=== PATIENT | male | born 1965 | race Caucasian/White ===

== ENCOUNTER 2022-08-26 14:40 | Inpatient (IN) | payer OTHER ==
[~2022-08-26] VITALS: Ht 177.8 cm; Wt 113.4 kg
[~2022-08-26 14:40] MED LIST: PHENYLEPHRINE HCL 1% 10 MG/ML VIAL ONE
[2022-08-26] MEDS ORDERED: ONDANSETRON HCL INJ 2MG/ML 2ML 2 MG/ML VIAL IV STA (14:48)
[2022-08-26] MEDS ORDERED: SODIUM CHLORIDE 0.9% 1000ML 1,000 ML IV ONE ×2 (15:00→16:45)
[2022-08-26] MEDS ORDERED: Morphine 4mg INJECTION 4 MG/ML INJ IV ONE (15:00)
[2022-08-26 15:09] LABS: BASOPHILS % 0.3 % (0.0-1.0); EOSINOPHILS # (AUTO) 0.1 (0.0-0.4); EOSINOPHILS % 0.4 % (0.0-6.0); HEMATOCRIT 50.4 % (38.2-49.6); HEMOGLOBIN 16.6 g/dL (14.0-18.0); LYMPHOCYTES # (AUTO) 1.5 (1.0-3.2); MEAN CORPUSCULAR HEMOGLOBIN 30.2 pg (28-32); MEAN CORPUSCULAR HGB CONC 32.9 g/dL (31-35); MEAN CORPUSCULAR VOLUME 91.6 fL (81-99); MONOCYTES # (AUTO) 1.3 (0.2-0.8); MONOCYTES % 9.3 % (4.4-11.3); NEUTROPHILS # (AUTO) 10.5 (2.1-6.9); NEUTROPHILS % 78.7 % (38.7-80.0); PLATELET COUNT 212 x10e3/uL (140-360); RED CELL DISTRIBUTION WIDTH 11.8 % (11.7-14.4)
[2022-08-26 15:39] LABS: ALBUMIN 3.4 g/dL (3.5-5.0); ALBUMIN/GLOBULIN RATIO 0.7 (0.8-2.0); ANION GAP 17.9 mmol/L (8-16); CALCIUM 9.4 mg/dL (8.4-10.2); CREATININE, SERUM 0.83 mg/dL (0.72-1.25); POTASSIUM 3.9 mmol/L (3.5-5.1)
[2022-08-26] MEDS ORDERED: Vancomycin IV 1 GM in SODIUM CHLORIDE 0.9% 250ML 250 ML IV STA (16:02)
[2022-08-26] MEDS ORDERED: MAGNESIUM SULFATE 2GM/50ML 50 ML IV ONE (16:15)
[2022-08-26] MEDS ORDERED: ONDANSETRON HCL INJ 2MG/ML 2ML 2 MG/ML VIAL IV PRN (16:30)
[2022-08-26] MEDS ORDERED: ASPIRIN 81 MG CHEW TAB PO ONE (16:30)
[2022-08-26] MEDS ORDERED: SODIUM CHLORIDE 0.9% 1000ML 3,400 ML IV SCH (16:45)
[2022-08-26] MEDS: SODIUM CHLORIDE 0.9% 1000ML 1,000 ML IV SCH (16:57)
[2022-08-26] MEDS ORDERED: ACETAMINOPHEN 325 MG TAB PO PRN (17:30)
[2022-08-26] MEDS ORDERED: HYDRALAZINE HCL 20 MG/ML VIAL IV PRN (17:30)
[2022-08-26] MEDS ORDERED: DEXTROSE 50% SYRINGE 50 ML IV PRN (17:30)
[2022-08-26] MEDS ORDERED: METOPROLOL TARTRATE INJ 1 MG/ML VIAL IV PRN (17:45)
[2022-08-26] MEDS ORDERED: Vancomycin IV 1 GM in SODIUM CHLORIDE 0.9% 250ML 250 ML IV ONE (18:00)
[2022-08-26 19:06] LABS: CLARITY,URINE CLEAR (CLEAR); COLOR,URINE YELLOW (YELLOW); KETONES,URINE 2+ (NEGATIVE); LEUKOCYTE ESTERASE ,URINE NEGATIVE (NEGATIVE); NITRITE,URINE NEGATIVE (NEGATIVE); PROTEIN,URINE DIPSTICK NEGATIVE (NEGATIVE); URINE UROBILINOGEN 0.2 mg/dL (0.2 - 1)
[2022-08-26 19:10] LABS: EPITHELIAL CELLS,URINE FEW /LPF; RBC,URINE 0-5 /HPF (0-5); WBC,URINE (MAN) 0-5 /HPF (0-5)
[2022-08-26] MEDS: Morphine 4mg INJECTION 4 MG/ML INJ IV PRN (20:07)
[2022-08-26 20:22] VITALS: BP 113/65
[2022-08-26 21:00] VITALS: BP 113/65
[2022-08-26] MEDS: INSULIN REGULAR, HUMAN 100 UNIT/1 ML SQ SCH (22:57)
[2022-08-27] VITALS (10 sets, daily range): BP systolic 99–135; BP diastolic 56–93
[2022-08-27] MEDS: SODIUM CHLORIDE 0.9% 1000ML 1,000 ML IV SCH ×3 (00:47→16:41)
[2022-08-27] MEDS: Morphine 4mg INJECTION 4 MG/ML INJ IV PRN ×4 (00:48→19:08)
[2022-08-27 04:58] LABS: BASOPHILS # (AUTO) 0.1 (0.0-0.1); BASOPHILS % 0.8 % (0.0-1.0); EOSINOPHILS # (AUTO) 0.1 (0.0-0.4); EOSINOPHILS % 1.5 % (0.0-6.0); HEMATOCRIT 47.5 % (38.2-49.6); HEMOGLOBIN 15.4 g/dL (14.0-18.0); LYMPHOCYTES # (AUTO) 1.4 (1.0-3.2); LYMPHOCYTES % 14.8 % (18.0-39.1); MEAN CORPUSCULAR HEMOGLOBIN 30.3 pg (28-32); MEAN CORPUSCULAR HGB CONC 32.4 g/dL (31-35); MEAN CORPUSCULAR VOLUME 93.3 fL (81-99); MONOCYTES # (AUTO) 0.9 (0.2-0.8); MONOCYTES % 9.8 % (4.4-11.3); NEUTROPHILS # (AUTO) 6.8 (2.1-6.9); NEUTROPHILS % 72.8 % (38.7-80.0); PLATELET COUNT 132 x10e3/uL (140-360); RED BLOOD COUNT 5.09 x10e6/uL (4.3-5.7)
[2022-08-27 05:11] LABS: INR 1.03; PROTHROMBIN TIME 14.4 seconds (11.9-14.5)
[2022-08-27 05:12] LABS: PARTIAL THROMBOPLASTIN TIME 30.7 seconds (23.8-35.5)
[2022-08-27 05:20] LABS: ANION GAP 16.7 mmol/L (8-16); CALCIUM 8.4 mg/dL (8.4-10.2); CREATININE, SERUM 0.61 mg/dL (0.72-1.25); MAGNESIUM 1.8 MG/DL (1.3-2.1); POTASSIUM 3.7 mmol/L (3.5-5.1)
[2022-08-27] MEDS ORDERED: SODIUM CHLORIDE 0.9% 250ML 250 ML ONE (06:23)
[2022-08-27] MEDS: Vancomycin IV 1 GM in SODIUM CHLORIDE 0.9% 250ML 250 ML IV SCH ×2 (06:46→16:41)
[2022-08-27] MEDS: INSULIN REGULAR, HUMAN 100 UNIT/1 ML SQ SCH ×4 (07:30→22:08)
[2022-08-27] MEDS: ASPIRIN 81 MG ENTERIC COATED PO SCH (09:00)
[2022-08-27] MEDS ORDERED: BUPIVACAINE 0.5%/EPI 30 ML SDV INJ ONE (14:48)
[2022-08-27] MEDS: ACETAMINOPHEN/CODEINE 300MG - 30MG TAB PO PRN (22:04)
[2022-08-28] VITALS (8 sets, daily range): BP systolic 99–135; BP diastolic 54–93
[2022-08-28] MEDS: Morphine 4mg INJECTION 4 MG/ML INJ IV PRN ×4 (00:28→21:26)
[2022-08-28] MEDS: SODIUM CHLORIDE 0.9% 1000ML 1,000 ML IV SCH ×3 (00:33→16:30)
[2022-08-28 04:53] LABS: BASOPHILS % 0.6 % (0.0-1.0); EOSINOPHILS # (AUTO) 0.1 (0.0-0.4); EOSINOPHILS % 2.2 % (0.0-6.0); HEMATOCRIT 42.2 % (38.2-49.6); HEMOGLOBIN 14.2 g/dL (14.0-18.0); LYMPHOCYTES # (AUTO) 1.8 (1.0-3.2); LYMPHOCYTES % 27.8 % (18.0-39.1); MEAN CORPUSCULAR HEMOGLOBIN 29.9 pg (28-32); MEAN CORPUSCULAR HGB CONC 33.6 g/dL (31-35); MEAN CORPUSCULAR VOLUME 88.8 fL (81-99); MONOCYTES # (AUTO) 0.7 (0.2-0.8); MONOCYTES % 10.9 % (4.4-11.3); NEUTROPHILS # (AUTO) 3.7 (2.1-6.9); NEUTROPHILS % 58.2 % (38.7-80.0); PLATELET COUNT 159 x10e3/uL (140-360); RED BLOOD COUNT 4.75 x10e6/uL (4.3-5.7); RED CELL DISTRIBUTION WIDTH 11.9 % (11.7-14.4)
[2022-08-28] MEDS: Vancomycin IV 1 GM in SODIUM CHLORIDE 0.9% 250ML 250 ML IV SCH ×2 (04:53→18:04)
[2022-08-28 05:15] LABS: ANION GAP 15.6 mmol/L (8-16); CALCIUM 8.3 mg/dL (8.4-10.2); CREATININE, SERUM 0.68 mg/dL (0.72-1.25); POTASSIUM 3.6 mmol/L (3.5-5.1)
[2022-08-28] MEDS: INSULIN REGULAR, HUMAN 100 UNIT/1 ML SQ SCH ×5 (07:30→22:25)
[2022-08-28] MEDS: ASPIRIN 81 MG ENTERIC COATED PO SCH (08:34)
[2022-08-28 10:16] LABS: EOSINOPHILS % (MANUAL) 1 % (0-7); LYMPHOCYTES % (MANUAL) 27 % (19-48); MONOCYTES % (MANUAL) 11 % (3.4-9.0); NEUTROPHILS % (MANUAL) 61 % (40-74); PLATELET ESTIMATE ADEQUATE; PLATELET MORPHOLOGY COMMENT NORMAL; RBC MORPHOLOGY COMMENT NORMAL
[2022-08-28] MEDS: GLIPIZIDE 5 MG TAB PO SCH ×2 (10:30→16:30)
[2022-08-28] MEDS: NICOTINE 21 MG/EA PATCH TOP PRN (14:19)
[2022-08-28] MEDS: INSULIN GLARGINE 100 UNITS/ML VIAL SQ SCH ×2 (21:00→22:25)
[2022-08-28] MEDS: ACETAMINOPHEN/CODEINE 300MG - 30MG TAB PO PRN (23:45)
[2022-08-29] VITALS: BP 103/80
[2022-08-29 04:00] VITALS: BP 113/84
[2022-08-29] MEDS: Vancomycin IV 1 GM in SODIUM CHLORIDE 0.9% 250ML 250 ML IV SCH (05:34)
[2022-08-29 07:49] VITALS: BP 114/79
[2022-08-29 08:00] VITALS: BP 114/79
[2022-08-29] MEDS: INSULIN REGULAR, HUMAN 100 UNIT/1 ML SQ SCH ×2 (08:00→12:00)
[2022-08-29] MEDS: Morphine 4mg INJECTION 4 MG/ML INJ IV PRN ×2 (09:41→13:23)
[2022-08-29] MEDS: ASPIRIN 81 MG ENTERIC COATED PO SCH (09:43)
[2022-08-29] MEDS: GLIPIZIDE 5 MG TAB PO SCH (09:44)
[2022-08-29] MEDS: NICOTINE 21 MG/EA PATCH TOP PRN (09:49)
[2022-08-29] MEDS ORDERED: BACTRIM DS TAB1 EACH PO (10:52)
[2022-08-29] MEDS ORDERED: GLIPIZIDE5 MG PO (10:52)
[2022-08-29] MEDS ORDERED: METFORMIN HCL500 MG PO (10:58)
[2022-08-29 11:40] VITALS: BP 125/70
[2022-08-29] MEDS ORDERED: LIDOCAINE HCL 2% LOCAL INJ 5 ML SDV VIAL INJ ONE (16:00)
[2022-08-29] MEDS ORDERED: GLYCOPYRROLATE INJ 0.2 MG/ML VIAL IV ONE (16:00)
[2022-08-29] MEDS ORDERED: ROCURONIUM BROMIDE 10 MG/ML 5ML VIAL IV ONE (16:00)
[2022-08-29] MEDS ORDERED: SEVOFLURANE INHAL SOLN 250 ML PEN BTL INH ONE (16:00)
[2022-08-29] MEDS ORDERED: POVIDONE IODINE 0.05% 0.05 % ML PO ONE (16:00)
[2022-08-29] MEDS ORDERED: PROPOFOL IV EMULSION 10 MG/ML 20 ML VIAL IV ONE (16:00)
[2022-08-29] MEDS ORDERED: METOCLOPRAMIDE HCL 10 MG/2ML VIAL IV ONE (16:00)
[2022-08-29] MEDS ORDERED: ONDANSETRON HCL INJ 2MG/ML 2ML 2 MG/ML VIAL IV ONE (16:00)
[2022-08-29] MEDS ORDERED: NEOSTIGMINE 1 MG/ML 10ML VIAL IV ONE (16:00)
== END 2022-08-29 16:01 | disposition home health service (06) | DRG 854 ==
LOC: ER 14:43 → ERHOLD 16:29 → MED/SURG2 20:24
PROVIDERS: ADMIT Internal Medicine; ATTEND Internal Medicine
PROC: 3E03329 Introduction of Other Anti-infective into Peripheral Vein, Percutaneous Approach (ICD-10-PCS; 2022-08-26)
PROC: 0VB50ZZ Excision of Scrotum, Open Approach (ICD-10-PCS; principal; 2022-08-27 14:38)
DX: A41.9 Sepsis, unspecified organism (principal); E11.52 Type 2 diabetes mellitus with diabetic peripheral angiopathy with gangrene; E87.1 Hypo-osmolality and hyponatremia; I96 Gangrene, not elsewhere classified; N49.2 Inflammatory disorders of scrotum; R07.89 Other chest pain; I10 Essential (primary) hypertension; F17.200 Nicotine dependence, unspecified, uncomplicated; Z20.822 Contact with and (suspected) exposure to COVID-19; D69.6 Thrombocytopenia, unspecified; I49.9 Cardiac arrhythmia, unspecified; N43.3 Hydrocele, unspecified; I86.1 Scrotal varices; E66.9 Obesity, unspecified; Z68.35 Body mass index [BMI] 35.0-35.9, adult
CPT/HCPCS: 0223U; 36415; 71045; 76870; 80048; 80053; 80202; 81001; 82948; 83036; 83605; 83735; 84443; 84484; 85025; 85610; 85730; 87040; 87071; 87075; 87086; 87205; 88304; 93005; 93306; 93976; 99285; J1815; J1817; J2001; J2270; J2370; J2405; J2543; J2710; J2765; J3370; J3475; J7030; J7050

== ENCOUNTER 2024-03-31 18:30 | Inpatient (IN) | payer OTHER ==
[~2024-03-31] VITALS: Ht 177.8 cm; Wt 106.6 kg
[~2024-03-31 18:30] MED LIST changes: +ASPIRIN81 MG PO; +BACTRIM DS TAB1 EACH PO; +DOXYCYCLINE MO100 M1 PO; +GLIPIZIDE5 MG PO; +LANTUS 3ML100 UNITS/ SQ; +METFORMIN HCL500 MG PO; +NEURONTIN300 MG PO; +ONE DAILY COMP1 EACH; -PHENYLEPHRINE HCL 1% 10 MG/ML VIAL ONE; +TYLENOL 3 PO
[2024-03-31 19:31] LABS: BASOPHILS # (AUTO) 0.1 (0.0-0.1); BASOPHILS % 0.4 % (0.0-1.0); EOSINOPHILS # (AUTO) 0.1 (0.0-0.4); EOSINOPHILS % 0.6 % (0.0-6.0); HEMATOCRIT 50.1 % (38.2-49.6); HEMOGLOBIN 16.8 g/dL (14.0-18.0); LYMPHOCYTES # (AUTO) 1.2 (1.0-3.2); LYMPHOCYTES % 8.7 % (18.0-39.1); MEAN CORPUSCULAR HEMOGLOBIN 29.8 pg (28-32); MEAN CORPUSCULAR HGB CONC 33.5 g/dL (31-35); MONOCYTES # (AUTO) 1.2 (0.2-0.8); MONOCYTES % 8.1 % (4.4-11.3); NEUTROPHILS # (AUTO) 11.7 (2.1-6.9); NEUTROPHILS % 81.8 % (38.7-80.0); PLATELET COUNT 165 x10e3/uL (140-360); RED BLOOD COUNT 5.63 x10e6/uL (4.3-5.7); RED CELL DISTRIBUTION WIDTH 12.3 % (11.7-14.4); WHITE BLOOD COUNT 14.24 x10e3/uL (4.8-10.8)
[2024-03-31] MEDS: SODIUM CHLORIDE 0.9% 1000ML 1,000 ML IV ONE ×2 (19:31→22:13)
[2024-03-31] MEDS: ACETAMINOPHEN 325 MG TAB PO ONE (19:32)
[2024-03-31 19:51] LABS: ALBUMIN 3.2 g/dL (3.5-5.0); ALBUMIN/GLOBULIN RATIO 0.8 (0.8-2.0); ANION GAP 18.4 mmol/L (8-16); BILIRUBIN,TOTAL 1.5 mg/dL (0.2-1.2); CALCIUM 9.1 mg/dL (8.4-10.2); CREATININE, SERUM 0.9 mg/dL (0.72-1.25); TOTAL PROTEIN 7.3 g/dL (6.5-8.1)
[2024-03-31 19:55] LABS: POTASSIUM 3.4 mmol/L (3.5-5.1)
[2024-03-31 19:57] LABS: AMPHETAMINES SCREEN,URINE NEGATIVE (NEGATIVE); BENZODIAZEPINES SCREEN,URINE NEGATIVE (NEGATIVE); CANNABINOIDS SCREEN,URINE POSITIVE (NEGATIVE); METHADONE SCREEN, URINE NEGATIVE (NEGATIVE); OPIATES SCREEN,URINE NEGATIVE (NEGATIVE); PHENCYCLIDINE SCREEN,URINE NEGATIVE (NEGATIVE)
[2024-03-31] MEDS ORDERED: IOPAMIDOL 370 MG/ML 100 ML INFUS..BTL INJ ONE (20:07)
[2024-03-31 20:32] LABS: BILIRUBIN,URINE MODERATE (NEGATIVE); CLARITY,URINE SL CLOUDY (CLEAR); COLOR,URINE YELLOW (YELLOW); GLUCOSE, URINE 500 (NEGATIVE); KETONES,URINE 2+ (NEGATIVE); LEUKOCYTE ESTERASE ,URINE NEGATIVE (NEGATIVE); NITRITE,URINE NEGATIVE (NEGATIVE); PH,URINE 6 (5 - 7); PROTEIN,URINE DIPSTICK 2+ (NEGATIVE); URINE UROBILINOGEN 1 mg/dL (0.2 - 1)
[2024-03-31 20:50] LABS: BACTERIA,URINE FEW /HPF; EPITHELIAL CELLS,URINE FEW /LPF; MUCUS,URINE FEW (RARE); WBC,URINE (MAN) 0-5 /HPF (0-5)
[2024-03-31] MEDS: Vancomycin IV 1 GM in SODIUM CHLORIDE 0.9% 250ML 250 ML IV ONE (21:34)
[2024-03-31] MEDS ORDERED: Vancomycin IV 1 GM in SODIUM CHLORIDE 0.9% 250ML 250 ML IV SCH (22:00)
[2024-03-31] MEDS ORDERED: DEXTROSE 50% SYRINGE 50 ML IV PRN (22:00)
[2024-03-31] MEDS ORDERED: SODIUM CHLORIDE 0.9% 1000ML 2,000 ML ONE (22:13)
[2024-03-31 22:32] VITALS: PULSE 97; RESP 18; TEMP 99
[2024-03-31 22:35] VITALS: BP 106/73; PULSE 102; RESP 16; TEMP 98.8; O2SAT 99
[2024-03-31 22:47] VITALS: BP 101/64; PULSE 103; RESP 22; TEMP 98.8; O2SAT 100
[2024-03-31 23:00] VITALS: BP 104/67; PULSE 102; RESP 24; TEMP 98.8; O2SAT 96
[2024-03-31] MEDS: ACETAMINOPHEN 325 MG TAB PO PRN (23:50)
[2024-03-31] MEDS: SODIUM CHLORIDE 0.9% 1000ML 1,000 ML IV SCH (23:51)
[2024-04-01] VITALS (24 sets, daily range): BP systolic 86–131; BP diastolic 63–88; PULSE 94–108; RESP 18–35; TEMP 97.7–101.9; O2SAT 83–100
[2024-04-01 05:01] LABS: BASOPHILS % 0.2 % (0.0-1.0); EOSINOPHILS # (AUTO) 0.2 (0.0-0.4); EOSINOPHILS % 1.3 % (0.0-6.0); HEMATOCRIT 40.8 % (38.2-49.6); HEMOGLOBIN 14.2 g/dL (14.0-18.0); LYMPHOCYTES % 7.3 % (18.0-39.1); MEAN CORPUSCULAR HEMOGLOBIN 30.1 pg (28-32); MEAN CORPUSCULAR HGB CONC 34.8 g/dL (31-35); MEAN CORPUSCULAR VOLUME 86.6 fL (81-99); MONOCYTES # (AUTO) 1.3 (0.2-0.8); MONOCYTES % 9.8 % (4.4-11.3); NEUTROPHILS # (AUTO) 10.9 (2.1-6.9); NEUTROPHILS % 81.1 % (38.7-80.0); PLATELET COUNT 131 x10e3/uL (140-360); RED BLOOD COUNT 4.71 x10e6/uL (4.3-5.7); RED CELL DISTRIBUTION WIDTH 12.3 % (11.7-14.4); WHITE BLOOD COUNT 13.51 x10e3/uL (4.8-10.8)
[2024-04-01 06:01] LABS: ALBUMIN 2.5 g/dL (3.5-5.0); ALBUMIN/GLOBULIN RATIO 0.7 (0.8-2.0); BILIRUBIN,TOTAL 1.4 mg/dL (0.2-1.2); CALCIUM 8.4 mg/dL (8.4-10.2); CREATININE, SERUM 0.63 mg/dL (0.72-1.25); TOTAL PROTEIN 6.1 g/dL (6.5-8.1)
[2024-04-01] MEDS ORDERED: INSULIN REGULAR, HUMAN 100 UNIT/1 ML SQ SCH (07:30)
[2024-04-01] MEDS ORDERED: DEXTROSE 50% SYRINGE 50 ML IV PRN (09:30)
[2024-04-01] MEDS: INSULIN LISPRO 100 UNIT/1 ML 3ML VIAL SQ SCH ×2 (09:30→17:31)
[2024-04-01] MEDS: Vancomycin IV 1 GM in SODIUM CHLORIDE 0.9% 250ML 250 ML IV SCH (09:39)
[2024-04-01] MEDS: HYDROCODONE/APAP 10MG-325MG TAB PO PRN (09:40)
[2024-04-01] MEDS: INSULIN GLARGINE 100 UNITS/ML VIAL SQ ONE (10:45)
[2024-04-01] MEDS ORDERED: INSULIN GLARGINE 100 UNITS/ML VIAL SQ SCH (21:00)
[2024-04-01] MEDS: INSULIN GLARGINE 100 UNITS/ML VIAL SQ SCH (21:09)
[2024-04-02] VITALS (8 sets, daily range): BP systolic 99–112; BP diastolic 65–79; PULSE 84–100; RESP 16–20; TEMP 97.5–100; O2SAT 93–99
[2024-04-02 05:03] LABS: BASOPHILS % 0.3 % (0.0-1.0); EOSINOPHILS # (AUTO) 0.2 (0.0-0.4); EOSINOPHILS % 1.5 % (0.0-6.0); HEMOGLOBIN 14.2 g/dL (14.0-18.0); LYMPHOCYTES # (AUTO) 1.3 (1.0-3.2); LYMPHOCYTES % 10.5 % (18.0-39.1); MEAN CORPUSCULAR HEMOGLOBIN 29.8 pg (28-32); MEAN CORPUSCULAR HGB CONC 33.8 g/dL (31-35); MEAN CORPUSCULAR VOLUME 88.1 fL (81-99); MONOCYTES % 8.3 % (4.4-11.3); NEUTROPHILS # (AUTO) 9.4 (2.1-6.9); NEUTROPHILS % 78.9 % (38.7-80.0); PLATELET COUNT 146 x10e3/uL (140-360); RED BLOOD COUNT 4.77 x10e6/uL (4.3-5.7); RED CELL DISTRIBUTION WIDTH 12.3 % (11.7-14.4); WHITE BLOOD COUNT 11.93 x10e3/uL (4.8-10.8)
[2024-04-02 05:19] LABS: ALBUMIN 2.4 g/dL (3.5-5.0); ALBUMIN/GLOBULIN RATIO 0.7 (0.8-2.0); ANION GAP 11.9 mmol/L (8-16); BILIRUBIN,TOTAL 0.6 mg/dL (0.2-1.2); CALCIUM 8.5 mg/dL (8.4-10.2); CREATININE, SERUM 0.59 mg/dL (0.72-1.25); MAGNESIUM 1.5 MG/DL (1.3-2.1); TOTAL PROTEIN 5.9 g/dL (6.5-8.1)
[2024-04-02 05:27] LABS: POTASSIUM 2.9 mmol/L (3.5-5.1)
[2024-04-02 05:40] LABS: PHOSPHORUS 2.8 MG/DL (2.3-4.7)
[2024-04-02] MEDS ORDERED: SOD CHL 0.45%/POT CHL 20MEQ 1,000 ML IV SCH ×2 (05:45→07:30)
[2024-04-02] MEDS ORDERED: POTASSIUM CHLORIDE 20MEQ/100ML 100 ML IV ONE (06:15)
[2024-04-02] MEDS: POTASSIUM CHLORIDE 20 MEQ TAB CR PO STA (06:50)
[2024-04-02] MEDS: KCL 20MEQ/.9 SOD CHL 1,000 ML IV STA (08:49)
[2024-04-02] MEDS ORDERED: MAGNESIUM SULFATE 2GM/50ML IV ONE (10:00)
[2024-04-02] MEDS ORDERED: ALBUTEROL/IPRATROPIUM 3 ML NEB NEB PRN (10:15)
[2024-04-02] MEDS ORDERED: KCL 40MEQ/0.9% SOD CHL 1,000 ML IV SCH (10:15)
[2024-04-02] MEDS: CELECOXIB 100 MG CAP PO SCH (10:38)
[2024-04-02] MEDS: ENOXAPARIN SOD INJ 40 MG/0.4 ML SYR SC ONE (10:38)
[2024-04-02] MEDS: POTASSIUM CHLORIDE 10MEQ EA PO ONE (10:38)
[2024-04-02] MEDS: MAGNESIUM SULFATE 2GM/50ML 50 ML IV ONE (10:39)
[2024-04-02] MEDS: KETOROLAC TROMETHAMINE 30 MG/ML VIAL IV PRN (10:41)
[2024-04-02] MEDS: PREGABALIN 50 MG CAP PO SCH (10:54)
[2024-04-02] MEDS: POTASSIUM PHOSPHATE 20 MM in SODIUM CHLORIDE 0.9% 250ML 250 ML IV SCH (13:26)
[2024-04-02] MEDS: INSULIN LISPRO 100 UNIT/1 ML 3ML VIAL SQ SCH (17:25)
[2024-04-03] VITALS (12 sets, daily range): BP systolic 97–126; BP diastolic 64–90; PULSE 86–105; RESP 16–20; TEMP 97.6–101.5; O2SAT 92–100
[2024-04-03] MEDS: KCL 40MEQ/0.9% SOD CHL 1,000 ML IV SCH (01:26)
[2024-04-03] MEDS: KCL 20MEQ/.9 SOD CHL 1,000 ML IV ONE (08:17)
[2024-04-03 08:45] LABS: BASOPHILS % 0.2 % (0.0-1.0); EOSINOPHILS # (AUTO) 0.2 (0.0-0.4); EOSINOPHILS % 1.4 % (0.0-6.0); HEMOGLOBIN 12.9 g/dL (14.0-18.0); LYMPHOCYTES # (AUTO) 0.7 (1.0-3.2); LYMPHOCYTES % 6.6 % (18.0-39.1); MEAN CORPUSCULAR HEMOGLOBIN 30.1 pg (28-32); MEAN CORPUSCULAR HGB CONC 34.9 g/dL (31-35); MEAN CORPUSCULAR VOLUME 86.4 fL (81-99); MONOCYTES # (AUTO) 0.9 (0.2-0.8); MONOCYTES % 8.1 % (4.4-11.3); NEUTROPHILS # (AUTO) 9.3 (2.1-6.9); NEUTROPHILS % 83.2 % (38.7-80.0); PLATELET COUNT 121 x10e3/uL (140-360); RED BLOOD COUNT 4.28 x10e6/uL (4.3-5.7); RED CELL DISTRIBUTION WIDTH 12.5 % (11.7-14.4); WHITE BLOOD COUNT 11.19 x10e3/uL (4.8-10.8)
[2024-04-03 09:02] LABS: ANION GAP 11.5 mmol/L (8-16); CALCIUM 8.6 mg/dL (8.4-10.2); CREATININE, SERUM 0.62 mg/dL (0.72-1.25); POTASSIUM 3.5 mmol/L (3.5-5.1)
[2024-04-03 09:18] LABS: MAGNESIUM 1.7 MG/DL (1.3-2.1); PHOSPHORUS 3.2 MG/DL (2.3-4.7)
[2024-04-03] MEDS: FENTANYL CITRATE/PF 100MCG/2 ML INJ IV ONE (10:32)
[2024-04-03] MEDS: FENTANYL CITRATE/PF 100MCG/2 ML INJ ONE (11:26)
[2024-04-03] MEDS ORDERED: ONDANSETRON HCL INJ 2MG/ML 2ML 2 MG/ML VIAL ONE (11:56)
[2024-04-03] MEDS ORDERED: SEVOFLURANE INHAL SOLN 250 ML PEN BTL ONE (11:56)
[2024-04-03] MEDS ORDERED: LIDOCAINE HCL 2% LOCAL INJ 5 ML SDV VIAL INJ ONE (11:56)
[2024-04-03] MEDS ORDERED: PROPOFOL IV EMULSION 10 MG/ML 20 ML VIAL ONE (11:56)
[2024-04-03] MEDS ORDERED: KETOROLAC TROMETHAMINE 30 MG/ML VIAL ONE (11:56)
[2024-04-03] MEDS ORDERED: FENTANYL CITRATE/PF 100MCG/2 ML INJ ONE (13:32)
[2024-04-03] MEDS ORDERED: MIDAZOLAM HCL 2 MG/2 ML VIAL ONE (13:32)
[2024-04-03] MEDS: INSULIN GLARGINE 100 UNITS/ML VIAL SQ SCH (20:33)
[2024-04-03] MEDS: ONDANSETRON HCL INJ 2MG/ML 2ML 2 MG/ML VIAL IV PRN (21:36)
[2024-04-03] MEDS: Morphine 2mg Syringe 2 MG/ML SYR IV PRN (21:36)
[2024-04-04] VITALS (11 sets, daily range): BP systolic 95–113; BP diastolic 64–84; PULSE 85–105; RESP 18–20; TEMP 97.5–101.5; O2SAT 94–100
[2024-04-04 10:43] LABS: ANION GAP 14.2 mmol/L (8-16); CALCIUM 8.2 mg/dL (8.4-10.2); CREATININE, SERUM 0.64 mg/dL (0.72-1.25); POTASSIUM 4.2 mmol/L (3.5-5.1)
[2024-04-04 10:51] LABS: BASOPHILS % 0.4 % (0.0-1.0); EOSINOPHILS # (AUTO) 0.2 (0.0-0.4); EOSINOPHILS % 1.4 % (0.0-6.0); HEMATOCRIT 36.1 % (38.2-49.6); HEMOGLOBIN 12.2 g/dL (14.0-18.0); LYMPHOCYTES # (AUTO) 0.9 (1.0-3.2); LYMPHOCYTES % 7.8 % (18.0-39.1); MEAN CORPUSCULAR HEMOGLOBIN 29.9 pg (28-32); MEAN CORPUSCULAR HGB CONC 33.8 g/dL (31-35); MEAN CORPUSCULAR VOLUME 88.5 fL (81-99); MONOCYTES # (AUTO) 1.1 (0.2-0.8); MONOCYTES % 10.2 % (4.4-11.3); NEUTROPHILS # (AUTO) 8.7 (2.1-6.9); NEUTROPHILS % 79.7 % (38.7-80.0); PLATELET COUNT 137 x10e3/uL (140-360); RED BLOOD COUNT 4.08 x10e6/uL (4.3-5.7); RED CELL DISTRIBUTION WIDTH 12.8 % (11.7-14.4); WHITE BLOOD COUNT 10.93 x10e3/uL (4.8-10.8)
[2024-04-04] MEDS: NICOTINE 21 MG/EA PATCH TOP SCH (15:30)
[2024-04-04] MEDS: Morphine 4mg INJECTION 4 MG/ML INJ IV ONE (19:44)
[2024-04-04] MEDS: INSULIN GLARGINE 100 UNITS/ML VIAL SQ SCH (21:19)
[2024-04-05] VITALS (11 sets, daily range): BP systolic 108–117; BP diastolic 70–85; PULSE 72–90; RESP 14–22; TEMP 97.5–98.9; O2SAT 95–100
[2024-04-05 02:10] LABS: ABG HCO3 21 mmol/L (22-26); ABG PCO2 21 mmHg (35-45); ABG PH 7.61 (7.35-7.45); ABG PO2 150 mmHg (80-105); ABG TCO2 22
[2024-04-05 02:15] LABS: BASOPHILS % 0.3 % (0.0-1.0); EOSINOPHILS # (AUTO) 0.2 (0.0-0.4); EOSINOPHILS % 2.2 % (0.0-6.0); HEMATOCRIT 32.3 % (38.2-49.6); LYMPHOCYTES # (AUTO) 1.3 (1.0-3.2); LYMPHOCYTES % 13.5 % (18.0-39.1); MEAN CORPUSCULAR HEMOGLOBIN 29.6 pg (28-32); MEAN CORPUSCULAR HGB CONC 34.1 g/dL (31-35); MEAN CORPUSCULAR VOLUME 87.1 fL (81-99); MONOCYTES % 10.4 % (4.4-11.3); NEUTROPHILS # (AUTO) 6.9 (2.1-6.9); NEUTROPHILS % 72.6 % (38.7-80.0); PLATELET COUNT 140 x10e3/uL (140-360); RED BLOOD COUNT 3.71 x10e6/uL (4.3-5.7); RED CELL DISTRIBUTION WIDTH 12.8 % (11.7-14.4); WHITE BLOOD COUNT 9.44 x10e3/uL (4.8-10.8)
[2024-04-05] MEDS: ONDANSETRON HCL INJ 2MG/ML 2ML 2 MG/ML VIAL IV STA (02:17)
[2024-04-05] MEDS: SODIUM CHLORIDE 0.9% 1000ML 1,000 ML IV ONE (02:17)
[2024-04-05] MEDS: SODIUM CHLORIDE 0.9% 1000ML 1,000 ML ONE (02:22)
[2024-04-05] MEDS ORDERED: IOPAMIDOL 370 MG/ML 100 ML INFUS..BTL INJ ONE (02:24)
[2024-04-05 02:38] LABS: ALBUMIN 1.9 g/dL (3.5-5.0); ALBUMIN/GLOBULIN RATIO 0.6 (0.8-2.0); ANION GAP 13.9 mmol/L (8-16); BILIRUBIN,TOTAL 0.4 mg/dL (0.2-1.2); CALCIUM 8.1 mg/dL (8.4-10.2); CREATININE, SERUM 0.72 mg/dL (0.72-1.25); POTASSIUM 3.9 mmol/L (3.5-5.1); TOTAL PROTEIN 5.3 g/dL (6.5-8.1)
[2024-04-05 02:40] LABS: TROPONIN I 0.034 ng/mL (0-0.300)
[2024-04-05] MEDS: INSULIN LISPRO 100 UNIT/1 ML 3ML VIAL SQ SCH ×3 (07:30→17:09)
[2024-04-05] MEDS: POTASSIUM CHLORIDE 10MEQ EA PO SCH (10:25)
[2024-04-05] MEDS: FUROSEMIDE INJ 10 MG/ML 2 ML VIAL IV SCH (10:26)
[2024-04-05] MEDS: MAGNESIUM HYDROXIDE 30 ML UDC PO SCH (14:41)
[2024-04-05] MEDS: CEFTRIAXONE 2 GM in SODIUM CHLORIDE 0.9% 100 ML IV SCH (16:58)
[2024-04-05] MEDS: ENOXAPARIN SOD INJ 40 MG/0.4 ML SYR SC SCH (16:59)
[2024-04-05] MEDS: INSULIN GLARGINE 100 UNITS/ML VIAL SQ SCH (21:00)
[2024-04-06] VITALS (10 sets, daily range): BP systolic 99–128; BP diastolic 58–80; PULSE 69–86; RESP 18–20; TEMP 97.7–98.9; O2SAT 95–100
[2024-04-06 06:43] LABS: BASOPHILS % 0.5 % (0.0-1.0); EOSINOPHILS # (AUTO) 0.2 (0.0-0.4); EOSINOPHILS % 2.8 % (0.0-6.0); HEMATOCRIT 37.1 % (38.2-49.6); LYMPHOCYTES # (AUTO) 1.1 (1.0-3.2); LYMPHOCYTES % 13.9 % (18.0-39.1); MEAN CORPUSCULAR HEMOGLOBIN 29.1 pg (28-32); MEAN CORPUSCULAR HGB CONC 32.3 g/dL (31-35); MONOCYTES # (AUTO) 0.8 (0.2-0.8); MONOCYTES % 9.9 % (4.4-11.3); NEUTROPHILS # (AUTO) 5.8 (2.1-6.9); NEUTROPHILS % 72.6 % (38.7-80.0); PLATELET COUNT 183 x10e3/uL (140-360); RED BLOOD COUNT 4.12 x10e6/uL (4.3-5.7); RED CELL DISTRIBUTION WIDTH 12.8 % (11.7-14.4); WHITE BLOOD COUNT 7.98 x10e3/uL (4.8-10.8)
[2024-04-06 07:01] LABS: ANION GAP 14.7 mmol/L (8-16); CALCIUM 8.9 mg/dL (8.4-10.2); CREATININE, SERUM 0.59 mg/dL (0.72-1.25); POTASSIUM 3.7 mmol/L (3.5-5.1)
[2024-04-06] MEDS: POLYETHYLENE GLYCOL 3350 17 GM PACK PO SCH (09:00)
[2024-04-06] MEDS: SODIUM HYPOCHLORITE 0.25% 480 ML SOLN IR ONE (18:21)
[2024-04-06] MEDS: INSULIN GLARGINE 100 UNITS/ML VIAL SQ SCH (21:00)
[2024-04-07] VITALS (8 sets, daily range): BP systolic 93–108; BP diastolic 59–79; PULSE 80–89; RESP 17–18; TEMP 97.6–98.5; O2SAT 96–99
[2024-04-08] VITALS (10 sets, daily range): BP systolic 102–119; BP diastolic 68–83; PULSE 81–95; RESP 18–21; TEMP 97.7–99.1; O2SAT 96–100
[2024-04-08] MEDS: INSULIN LISPRO 100 UNIT/1 ML 3ML VIAL SQ SCH (16:30)
[2024-04-09] VITALS (10 sets, daily range): BP systolic 99–120; BP diastolic 68–83; PULSE 84–105; RESP 18–20; TEMP 97.1–98.7; O2SAT 94–100
[2024-04-09] MEDS: INSULIN LISPRO 100 UNIT/1 ML 3ML VIAL SQ SCH (17:50)
[2024-04-09] MEDS: INSULIN GLARGINE 100 UNITS/ML VIAL SQ SCH (21:00)
[2024-04-10] VITALS (13 sets, daily range): BP systolic 82–112; BP diastolic 71–86; PULSE 38–167; RESP 12–21; TEMP 97–98.4; O2SAT 82–100
[2024-04-10 07:27] LABS: BASOPHILS % 0.4 % (0.0-1.0); EOSINOPHILS # (AUTO) 0.3 (0.0-0.4); HEMATOCRIT 37.2 % (38.2-49.6); LYMPHOCYTES # (AUTO) 1.7 (1.0-3.2); LYMPHOCYTES % 19.3 % (18.0-39.1); MEAN CORPUSCULAR HEMOGLOBIN 29.3 pg (28-32); MEAN CORPUSCULAR HGB CONC 32.3 g/dL (31-35); MONOCYTES # (AUTO) 0.7 (0.2-0.8); MONOCYTES % 8.4 % (4.4-11.3); NEUTROPHILS # (AUTO) 5.8 (2.1-6.9); NEUTROPHILS % 68.1 % (38.7-80.0); PLATELET COUNT 258 x10e3/uL (140-360); RED BLOOD COUNT 4.09 x10e6/uL (4.3-5.7); RED CELL DISTRIBUTION WIDTH 12.6 % (11.7-14.4); WHITE BLOOD COUNT 8.56 x10e3/uL (4.8-10.8)
[2024-04-10 07:53] LABS: CALCIUM 10.1 mg/dL (8.4-10.2); CREATININE, SERUM 0.84 mg/dL (0.72-1.25)
[2024-04-10] MEDS: AMIODARONE HCL 200 MG TAB PO SCH (16:31)
[2024-04-10] MEDS ORDERED: METOPROLOL TARTRATE INJ 1 MG/ML VIAL IV PRN (18:45)
[2024-04-10] MEDS: SODIUM CHLORIDE 0.9% 1000ML 500 ML IV STA (20:02)
[2024-04-10] MEDS: SODIUM CHLORIDE 0.9% 500ML 500 ML ONE (20:02)
[2024-04-10] MEDS: INSULIN GLARGINE 100 UNITS/ML VIAL SQ SCH (21:25)
[2024-04-10] MEDS ORDERED: AMIODARONE 900MG 900 MG in Premix Bag 1 BAG IV SCH (21:45)
[2024-04-10] MEDS: Morphine 2mg Syringe 2 MG/ML SYR IV PRN (22:34)
[2024-04-10] MEDS: AMIODARONE 900MG 500 ML IV SCH (23:28)
[2024-04-11] VITALS (29 sets, daily range): BP systolic 88–132; BP diastolic 60–96; PULSE 16–151; RESP 10–31; TEMP 98–98.3; O2SAT 87–100
[2024-04-11] MEDS: ENOXAPARIN SOD INJ 60 MG/0.6 ML SYR SC ONE (00:10)
[2024-04-11] MEDS: FUROSEMIDE INJ 10 MG/ML 2 ML VIAL IV ONE (05:35)
[2024-04-11 06:26] LABS: BASOPHILS % 0.5 % (0.0-1.0); EOSINOPHILS # (AUTO) 0.1 (0.0-0.4); EOSINOPHILS % 1.4 % (0.0-6.0); HEMATOCRIT 34.6 % (38.2-49.6); HEMOGLOBIN 11.6 g/dL (14.0-18.0); LYMPHOCYTES # (AUTO) 1.2 (1.0-3.2); LYMPHOCYTES % 14.8 % (18.0-39.1); MEAN CORPUSCULAR HEMOGLOBIN 29.9 pg (28-32); MEAN CORPUSCULAR HGB CONC 33.5 g/dL (31-35); MEAN CORPUSCULAR VOLUME 89.2 fL (81-99); MONOCYTES # (AUTO) 0.6 (0.2-0.8); MONOCYTES % 7.4 % (4.4-11.3); NEUTROPHILS # (AUTO) 6.3 (2.1-6.9); NEUTROPHILS % 74.9 % (38.7-80.0); PLATELET COUNT 223 x10e3/uL (140-360); RED BLOOD COUNT 3.88 x10e6/uL (4.3-5.7); RED CELL DISTRIBUTION WIDTH 13.1 % (11.7-14.4)
[2024-04-11 07:07] LABS: CALCIUM 8.9 mg/dL (8.4-10.2); CREATININE, SERUM 0.74 mg/dL (0.72-1.25)
[2024-04-11] MEDS: ENOXAPARIN SODIUM INJ 100 MG/ML SYR SC SCH (08:06)
[2024-04-11] MEDS: METOPROLOL SUCCINATE 25 MG TAB XL PO SCH ×2 (08:08→16:58)
[2024-04-11 08:35] LABS: MAGNESIUM 1.7 MG/DL (1.3-2.1); PHOSPHORUS 2.8 MG/DL (2.3-4.7)
[2024-04-11] MEDS ORDERED: MAGNESIUM SULFATE 2GM/50ML IV ONE (09:00)
[2024-04-11] MEDS: MAGNESIUM SULFATE 2GM/50ML 50 ML IV ONE (09:26)
[2024-04-11] MEDS: DIGOXIN INJ 0.25 MG/ML 2 ML AMP IV SCH (11:54)
[2024-04-11] MEDS: CEFTRIAXONE 2 GM in SODIUM CHLORIDE 0.9% 100 ML IV SCH (15:12)
[2024-04-11] MEDS ORDERED: INSULIN LISPRO 100 UNIT/1 ML 3ML VIAL SQ SCH (16:30)
[2024-04-11] MEDS: INSULIN LISPRO 100 UNIT/1 ML 3ML VIAL SQ SCH ×2 (17:02→21:00)
[2024-04-11] MEDS: INSULIN GLARGINE 100 UNITS/ML VIAL SQ SCH (21:00)
[2024-04-11] MEDS: INSULIN GLARGINE 100 UNITS/ML VIAL SQ ONE (22:18)
[2024-04-11] MEDS: ONDANSETRON HCL 4 MG ORAL DISINTEGRATING TAB PO PRN (22:24)
[2024-04-12] VITALS (12 sets, daily range): BP systolic 94–117; BP diastolic 63–83; PULSE 71–88; RESP 17–24; TEMP 97.8–98.7; O2SAT 95–100
[2024-04-12 07:11] LABS: MAGNESIUM 1.8 MG/DL (1.3-2.1); PHOSPHORUS 3.8 MG/DL (2.3-4.7)
[2024-04-12] MEDS ORDERED: INSULIN LISPRO 100 UNIT/1 ML 3ML VIAL SQ SCH (07:30)
[2024-04-12] MEDS: NICOTINE 21 MG/EA PATCH TOP PRN (10:58)
[2024-04-12] MEDS: DEXTROSE 50% SYRINGE 50 ML IV PRN (12:18)
[2024-04-12] MEDS: INSULIN LISPRO 100 UNIT/1 ML 3ML VIAL SQ SCH (16:30)
[2024-04-12] MEDS: INSULIN GLARGINE 100 UNITS/ML VIAL SQ SCH (21:00)
[2024-04-13] VITALS (16 sets, daily range): BP systolic 95–116; BP diastolic 43–79; PULSE 77–96; RESP 10–27; TEMP 98.3–98.7; O2SAT 95–100
[2024-04-13] MEDS: DIGOXIN 0.125 MG TAB PO SCH (08:46)
[2024-04-13] MEDS: INSULIN LISPRO 100 UNIT/1 ML 3ML VIAL SQ SCH (16:30)
[2024-04-13] MEDS: APIXABAN 5 MG TABLET PO SCH (17:00)
[2024-04-14] VITALS (10 sets, daily range): BP systolic 90–105; BP diastolic 57–72; PULSE 54–88; RESP 18–20; TEMP 98–98.4; O2SAT 94–100
[2024-04-14 09:19] LABS: BASOPHILS # (AUTO) 0.1 (0.0-0.1); BASOPHILS % 0.7 % (0.0-1.0); EOSINOPHILS # (AUTO) 0.1 (0.0-0.4); EOSINOPHILS % 1.6 % (0.0-6.0); HEMATOCRIT 41.5 % (38.2-49.6); HEMOGLOBIN 13.9 g/dL (14.0-18.0); LYMPHOCYTES # (AUTO) 1.5 (1.0-3.2); LYMPHOCYTES % 18.1 % (18.0-39.1); MEAN CORPUSCULAR HEMOGLOBIN 29.9 pg (28-32); MEAN CORPUSCULAR HGB CONC 33.5 g/dL (31-35); MEAN CORPUSCULAR VOLUME 89.2 fL (81-99); MONOCYTES # (AUTO) 0.6 (0.2-0.8); MONOCYTES % 7.1 % (4.4-11.3); PLATELET COUNT 229 x10e3/uL (140-360); RED BLOOD COUNT 4.65 x10e6/uL (4.3-5.7); RED CELL DISTRIBUTION WIDTH 13.2 % (11.7-14.4); WHITE BLOOD COUNT 8.29 x10e3/uL (4.8-10.8)
[2024-04-14 09:34] LABS: CREATININE, SERUM 0.92 mg/dL (0.72-1.25)
[2024-04-14 15:08] LABS: ANION GAP 17.9 mmol/L (8-16); CALCIUM 8.8 mg/dL (8.4-10.2); POTASSIUM 3.9 mmol/L (3.5-5.1)
[2024-04-15] VITALS (11 sets, daily range): BP systolic 90–109; BP diastolic 58–78; PULSE 53–66; RESP 18–20; TEMP 97.7–98.6; O2SAT 95–100
[2024-04-15] MEDS: HYDROMORPHONE 1MG/1ML INJ IV ONE (12:12)
[2024-04-15] MEDS: INSULIN LISPRO 100 UNIT/1 ML 3ML VIAL SQ SCH (17:04)
[2024-04-16] VITALS (9 sets, daily range): BP systolic 96–107; BP diastolic 64–76; PULSE 57–71; RESP 16–21; TEMP 97.5–98.6; O2SAT 96–100
[2024-04-17] VITALS (8 sets, daily range): BP systolic 97–116; BP diastolic 60–76; PULSE 66–75; RESP 16–22; TEMP 97.6–98.2; O2SAT 97–100
[2024-04-17 06:53] LABS: BASOPHILS # (AUTO) 0.1 (0.0-0.1); BASOPHILS % 0.8 % (0.0-1.0); EOSINOPHILS # (AUTO) 0.2 (0.0-0.4); EOSINOPHILS % 1.8 % (0.0-6.0); HEMATOCRIT 35.2 % (38.2-49.6); HEMOGLOBIN 11.8 g/dL (14.0-18.0); LYMPHOCYTES # (AUTO) 1.3 (1.0-3.2); LYMPHOCYTES % 14.6 % (18.0-39.1); MEAN CORPUSCULAR HEMOGLOBIN 30.1 pg (28-32); MEAN CORPUSCULAR HGB CONC 33.5 g/dL (31-35); MEAN CORPUSCULAR VOLUME 89.8 fL (81-99); MONOCYTES # (AUTO) 0.7 (0.2-0.8); MONOCYTES % 7.7 % (4.4-11.3); NEUTROPHILS # (AUTO) 6.6 (2.1-6.9); NEUTROPHILS % 74.8 % (38.7-80.0); PLATELET COUNT 164 x10e3/uL (140-360); RED BLOOD COUNT 3.92 x10e6/uL (4.3-5.7); RED CELL DISTRIBUTION WIDTH 13.4 % (11.7-14.4); WHITE BLOOD COUNT 8.78 x10e3/uL (4.8-10.8)
[2024-04-17 07:15] LABS: ANION GAP 14.1 mmol/L (8-16); CALCIUM 8.4 mg/dL (8.4-10.2); CREATININE, SERUM 0.85 mg/dL (0.72-1.25); POTASSIUM 4.1 mmol/L (3.5-5.1)
[2024-04-17] MEDS: PREGABALIN 50 MG CAP PO SCH (16:41)
[2024-04-17] MEDS: Morphine 2mg Syringe 2 MG/ML SYR IV PRN (16:42)
[2024-04-17] MEDS: SENNA-S TABLET PO SCH (16:43)
[2024-04-17] MEDS: CEFTRIAXONE 2 GM in SODIUM CHLORIDE 0.9% 100 ML IV SCH (16:44)
[2024-04-17] MEDS: HYDROCODONE/APAP 10MG-325MG TAB PO PRN (23:36)
[2024-04-18] VITALS (10 sets, daily range): BP systolic 92–113; BP diastolic 56–80; PULSE 61–73; RESP 16–20; TEMP 97.5–98.9; O2SAT 96–100
[2024-04-19] VITALS (8 sets, daily range): BP systolic 96–109; BP diastolic 60–71; PULSE 58–69; RESP 17–21; TEMP 97.5–98.9; O2SAT 97–100
[2024-04-20] VITALS (10 sets, daily range): BP systolic 94–112; BP diastolic 60–74; PULSE 52–68; RESP 16–20; TEMP 97.4–98.7; O2SAT 94–99
[2024-04-20] MEDS ORDERED: SODIUM CHLORIDE 0.9% 1000ML 1,000 ML IV SCH (06:00)
[2024-04-20 06:12] LABS: BASOPHILS # (AUTO) 0.1 (0.0-0.1); BASOPHILS % 0.7 % (0.0-1.0); EOSINOPHILS # (AUTO) 0.3 (0.0-0.4); EOSINOPHILS % 4.1 % (0.0-6.0); HEMATOCRIT 34.5 % (38.2-49.6); HEMOGLOBIN 11.6 g/dL (14.0-18.0); LYMPHOCYTES # (AUTO) 1.7 (1.0-3.2); LYMPHOCYTES % 25.4 % (18.0-39.1); MEAN CORPUSCULAR HEMOGLOBIN 30.3 pg (28-32); MEAN CORPUSCULAR HGB CONC 33.6 g/dL (31-35); MEAN CORPUSCULAR VOLUME 90.1 fL (81-99); MONOCYTES # (AUTO) 0.6 (0.2-0.8); MONOCYTES % 9.4 % (4.4-11.3); NEUTROPHILS # (AUTO) 4.1 (2.1-6.9); NEUTROPHILS % 60.1 % (38.7-80.0); PLATELET COUNT 188 x10e3/uL (140-360); RED BLOOD COUNT 3.83 x10e6/uL (4.3-5.7); RED CELL DISTRIBUTION WIDTH 13.6 % (11.7-14.4)
[2024-04-20 06:24] LABS: ABG HCO3 25 mmol/L (22-26); ABG PCO2 37 mmHg (35-45); ABG PH 7.43 (7.35-7.45); ABG PO2 57 mmHg (80-105); ABG TCO2 26
[2024-04-20 06:37] LABS: ALBUMIN 2.9 g/dL (3.5-5.0); ALBUMIN/GLOBULIN RATIO 0.8 (0.8-2.0); ANION GAP 14.7 mmol/L (8-16); BILIRUBIN,TOTAL 0.4 mg/dL (0.2-1.2); CALCIUM 8.6 mg/dL (8.4-10.2); CREATININE, SERUM 0.74 mg/dL (0.72-1.25); POTASSIUM 3.7 mmol/L (3.5-5.1); TOTAL PROTEIN 6.5 g/dL (6.5-8.1)
[2024-04-20] MEDS: METOPROLOL SUCCINATE 25 MG TAB XL PO SCH (09:00)
[2024-04-20] MEDS: GLUCAGON FOR INJ 1 MG VIAL IV ONE (09:15)
[2024-04-20] MEDS: SODIUM CHLORIDE 0.9% 1000ML 1,000 ML ONE (09:17)
[2024-04-20] MEDS: INSULIN LISPRO 100 UNIT/1 ML 3ML VIAL SQ SCH ×2 (12:16→16:30)
[2024-04-20] MEDS: NYSTATIN 15 GM POWDER UD BTL TOP SCH (12:22)
[2024-04-20] MEDS: INSULIN GLARGINE 100 UNITS/ML VIAL SQ SCH (21:00)
[2024-04-21] VITALS (10 sets, daily range): BP systolic 104–121; BP diastolic 72–78; PULSE 62–73; RESP 17–20; TEMP 97.9–98.8; O2SAT 96–99
[2024-04-21 05:36] LABS: OPIATES SCREEN,URINE POSITIVE (NEGATIVE); PHENCYCLIDINE SCREEN,URINE NEGATIVE (NEGATIVE)
[2024-04-21 05:37] LABS: AMPHETAMINES SCREEN,URINE NEGATIVE (NEGATIVE); BENZODIAZEPINES SCREEN,URINE NEGATIVE (NEGATIVE); CANNABINOIDS SCREEN,URINE POSITIVE (NEGATIVE); METHADONE SCREEN, URINE NEGATIVE (NEGATIVE)
[2024-04-22] VITALS (9 sets, daily range): BP systolic 101–130; BP diastolic 67–92; PULSE 63–79; RESP 18–19; TEMP 97.9–98.2; O2SAT 95–100
[2024-04-23] VITALS: BP 138/93; PULSE 80; RESP 20; TEMP 97.4; O2SAT 100
[2024-04-23 04:00] VITALS: BP 118/83; PULSE 67; RESP 20; TEMP 97.7; O2SAT 99
[2024-04-23 06:09] LABS: BASOPHILS % 0.5 % (0.0-1.0); EOSINOPHILS # (AUTO) 0.3 (0.0-0.4); EOSINOPHILS % 3.8 % (0.0-6.0); HEMATOCRIT 41.1 % (38.2-49.6); HEMOGLOBIN 13.1 g/dL (14.0-18.0); LYMPHOCYTES # (AUTO) 1.4 (1.0-3.2); LYMPHOCYTES % 20.4 % (18.0-39.1); MEAN CORPUSCULAR HEMOGLOBIN 29.5 pg (28-32); MEAN CORPUSCULAR HGB CONC 31.9 g/dL (31-35); MEAN CORPUSCULAR VOLUME 92.6 fL (81-99); MONOCYTES # (AUTO) 0.7 (0.2-0.8); MONOCYTES % 10.7 % (4.4-11.3); NEUTROPHILS # (AUTO) 4.3 (2.1-6.9); NEUTROPHILS % 64.3 % (38.7-80.0); PLATELET COUNT 176 x10e3/uL (140-360); RED BLOOD COUNT 4.44 x10e6/uL (4.3-5.7); RED CELL DISTRIBUTION WIDTH 13.5 % (11.7-14.4); WHITE BLOOD COUNT 6.66 x10e3/uL (4.8-10.8)
[2024-04-23 06:35] LABS: ANION GAP 13.1 mmol/L (8-16); CALCIUM 8.9 mg/dL (8.4-10.2); CREATININE, SERUM 0.69 mg/dL (0.72-1.25); POTASSIUM 4.1 mmol/L (3.5-5.1)
[2024-04-23 07:37] VITALS: PULSE 64; RESP 18; O2SAT 95
[2024-04-23 08:04] VITALS: BP 112/72; PULSE 70; RESP 16; TEMP 98.4; O2SAT 100
[2024-04-23 08:30] VITALS: BP 130/92; PULSE 79; RESP 18; TEMP 98.1; O2SAT 100
[2024-04-23 10:18] VITALS: BP 112/72; PULSE 70
== END 2024-04-23 11:30 | disposition home health service (06) | DRG 853 ==
LOC: ER 18:50 → ERHOLD 21:46 → ICU 22:41 → MED/SURG2 04-01 20:06 → ICU 04-10 23:17 → MED/SURG2 04-13 19:08
PROVIDERS: ADMIT Internal Medicine; ATTEND Internal Medicine
PROC: 02HV33Z Insertion of Infusion Device into Superior Vena Cava, Percutaneous Approach (ICD-10-PCS; 2024-04-01)
PROC: B548ZZA Ultrasonography of Superior Vena Cava, Guidance (ICD-10-PCS; 2024-04-01)
PROC: 3E04329 Introduction of Other Anti-infective into Central Vein, Percutaneous Approach (ICD-10-PCS; 2024-04-01)
PROC: 0KBM0ZZ Excision of Perineum Muscle, Open Approach (ICD-10-PCS; principal; 2024-04-03 09:44)
PROC: 4A033R1 Measurement of Arterial Saturation, Peripheral, Percutaneous Approach (ICD-10-PCS; 2024-04-05)
PROC: 4A033R1 Measurement of Arterial Saturation, Peripheral, Percutaneous Approach (ICD-10-PCS; 2024-04-20)
DX: A40.1 Sepsis due to streptococcus, group B (principal); I50.23 Acute on chronic systolic (congestive) heart failure; L02.215 Cutaneous abscess of perineum; I42.0 Dilated cardiomyopathy; N49.3 Fournier gangrene; R65.20 Severe sepsis without septic shock; Z91.148 Patient's other noncompliance with medication regimen for other reason; E11.65 Type 2 diabetes mellitus with hyperglycemia; I11.0 Hypertensive heart disease with heart failure; E11.649 Type 2 diabetes mellitus with hypoglycemia without coma; N49.2 Inflammatory disorders of scrotum; E66.01 Morbid (severe) obesity due to excess calories; Z68.33 Body mass index [BMI] 33.0-33.9, adult; Z71.3 Dietary counseling and surveillance; E78.5 Hyperlipidemia, unspecified; E11.42 Type 2 diabetes mellitus with diabetic polyneuropathy; Z79.84 Long term (current) use of oral hypoglycemic drugs; Z79.4 Long term (current) use of insulin; F17.210 Nicotine dependence, cigarettes, uncomplicated; I48.0 Paroxysmal atrial fibrillation; R53.81 Other malaise; E87.6 Hypokalemia; E83.42 Hypomagnesemia; E83.39 Other disorders of phosphorus metabolism; K59.00 Constipation, unspecified; D64.9 Anemia, unspecified; R00.1 Bradycardia, unspecified; R00.0 Tachycardia, unspecified; Z11.52 Encounter for screening for COVID-19; I44.4 Left anterior fascicular block; I08.3 Combined rheumatic disorders of mitral, aortic and tricuspid valves; G89.29 Other chronic pain; M54.9 Dorsalgia, unspecified; F15.90 Other stimulant use, unspecified, uncomplicated; F12.90 Cannabis use, unspecified, uncomplicated; M19.91 Primary osteoarthritis, unspecified site; Z79.899 Other long term (current) drug therapy; Z71.81 Spiritual or religious counseling
CPT/HCPCS: 36415; 36569; 70450; 71045; 71260; 74177; 76870; 80048; 80053; 80202; 80307; 81001; 82550; 82805; 82948; 83036; 83605; 83735; 84100; 84484; 85025; 87040; 87071; 87075; 87086; 87205; 88304; 93005; 93306; 93976; 94799; 96372; 97605; 97606; 99252; 99285; J0696; J1160; J1170; J1610; J1650; J1815; J1885; J1940; J2001; J2250; J2270; J2405; J2543; J3475; J7030; J7040; J7050; J7799; Q0162; Q9967; U0002